=== PATIENT | female | born 1990 | race Caucasian/White ===

== ENCOUNTER → 2016-09-13 | Outpatient (CLI) | payer OTHER ==
[2016-02-08 20:49] VITALS: BP 130/85
[~2016-09-13] MED LIST: TRAM50TA PO
[2016-09-13 11:09] LABS: PREG TEST PT QUAL NEGATIVE (NEG)
== END | disposition home or self-care (01) ==
LOC: LAB 09:59
PROVIDERS: ATTEND Physician Assistant
DX: N91.2 Amenorrhea, unspecified (principal)
CPT/HCPCS: 84703

== ENCOUNTER 2016-10-02 12:02 | Emergency (ER) | payer OTHER ==
[2016-10-02] MEDS ORDERED: IV NORMAL SALINE 1,000ML 1,000 ML IV SCH (12:50)
[2016-10-02] MEDS ORDERED: GABAPENTIN 100 MG CAPSULE. PO ONE (13:00)
[2016-10-02] MEDS ORDERED: ORPHENADRINE CITRATE 60 MG/2 ML VIAL. IM ONE (13:00)
[2016-10-02] MEDS ORDERED: methylPREDNISolone SOD SUCC PF 125 MG/2 ML VIAL. IV ONE (13:00)
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
[2016-10-02 14:09] VITALS: BP 116/70
== END 2016-10-02 14:09 | disposition home or self-care (01) ==
LOC: ER 12:02
DX: M54.16 Radiculopathy, lumbar region (principal); G89.29 Other chronic pain; M62.830 Muscle spasm of back
CPT/HCPCS: 96361; 96372; 96374; 99284; J2360; J2930; J7030

== ENCOUNTER → 2019-11-29 | Outpatient (CLI) | payer OTHER ==
--- NOTE | 2019-11-29 15:39 | RAD ---
HAND RIGHT 2V History: Reason: / Spl. Instructions: / History: Pain Technique: 2 views right hand Comparison: None. Findings: Normal alignment. No fracture. Soft tissues unremarkable. Impression: 1. No acute osseous abnormality. Electronically signed by: Jose Suarez DO (11/29/2019 3:36 PM) [id number]
== END ==
LOC: RAD 14:07
PROVIDERS: ATTEND Family Medicine
DX: S69.91XA Unspecified injury of right wrist, hand and finger(s), initial encounter (principal); X58.XXXA Exposure to other specified factors, initial encounter; Y93.89 Activity, other specified; Y92.89 Other specified places as the place of occurrence of the external cause; Y99.8 Other external cause status
CPT/HCPCS: 73120

== ENCOUNTER 2021-05-14 08:08 | Emergency (ER) | payer OTHER ==
[~2021-05-14] VITALS: Ht 160 cm; Wt 82.5 kg
[2021-05-14] MEDS ORDERED: IBUPROFEN 600 MG TABLET. PO ONE (09:15)
--- NOTE | 2021-05-14 10:07 | RAD ---
Pelvis one view, sacrum and coccyx 3 views HISTORY: Fall with injury Pelvis Single view was taken of the pelvis. There is no acute pelvic fracture. Hips. Unremarkable. Sacrum and coccyx 3 views were taken of the sacrum and coccyx. Sacrum appears intact. Coccyx is in normal alignment. An acute fracture is not identified. There is spondylolysis at L5 with grade 1 spondylolisthesis. IMPRESSION: 1. No pelvic fracture noted. 2. No fracture noted in the sacrum or coccyx. 3. Spondylolysis at L5 with spondylolisthesis. Electronically signed by: Timothy Agustin MD (05/14/2021 10:05 AM) [facility]
[2021-05-14] MEDS ORDERED: IBUP600T16 PO (10:39)
[2021-05-14 10:50] VITALS: BP 118/67
--- NOTE | 2021-05-14 11:00 | PHYS DOC ---
Past History Past Medical History: Other Past Surgical History: No Surgical History Alcohol Use: None Drug Use: None Adult General Chief Complaint Chief Complaint: MECHANICAL FALL HPI HPI Patient is a [age] year old [sex] who presents with [] Review of Systems Review of Systems Constitutional: Denies fever or chills [] Eyes: Denies change in visual acuity, redness, or eye pain [] HENT: Denies nasal congestion or sore throat [] Respiratory: Denies cough or shortness of breath [] Cardiovascular: No additional information not addressed in HPI [] GI: Denies abdominal pain, nausea, vomiting, bloody stools or diarrhea [] : Denies dysuria or hematuria [] Musculoskeletal: Denies back pain or joint pain [] Integument: Denies rash or skin lesions [] Neurologic: Denies headache, focal weakness or sensory changes [] Endocrine: Denies polyuria or polydipsia [] All other systems were reviewed and found to be within normal limits, except as documented in this note. Current Medications Current Medications Current Medications Medications (Trade) Dose Ordered Sig/Rafael Start Time Stop Time Status Last Admin Dose Admin Ibuprofen (Motrin) 600 mg 1X ONCE 05/14/21 09:15 05/14/21 09:16 DC 05/14/21 09:47 600 MG Allergies Allergies Allergies Coded Allergies Type Severity Reaction Last Updated Verified No Known Allergies Allergy Unknown 02/08/16 Yes Physical Exam Physical Exam Constitutional: Well developed, well nourished, no acute distress, non-toxic appearance. [] HENT: Normocephalic, atraumatic, bilateral external ears normal, oropharynx moist, no oral exudates, nose normal. [] Eyes: PERRLA, EOMI, conjunctiva normal, no discharge. [] Neck: Normal range of motion, no tenderness, supple, no stridor. [] Cardiovascular:Heart rate regular rhythm, no murmur [] Lungs & Thorax: Bilateral breath sounds clear to auscultation [] Abdomen: Bowel sounds normal, soft, no tenderness, no masses, no pulsatile masses. [] Skin: Warm, dry, no erythema, no rash. [] Back: No tenderness, no CVA tenderness. [] Extremities: No tenderness, no cyanosis, no clubbing, ROM intact, no edema. [] Neurologic: Alert and oriented X 3, normal motor function, normal sensory function, no focal deficits noted. [] Psychologic: Affect normal, judgement normal, mood normal. [] Current Patient Data Vital Signs Vital Signs Date Time Temp Pulse Resp B/P (MAP) Pulse Ox O2 Delivery O2 Flow Rate FiO2 05/14/21 09:00 98.5 100 18 124/87 (99) 97 Lab Results Laboratory Tests Test 05/14/21 08:14 POC Urine HCG, Qualitative hcg negative (Negative) EKG EKG [] Radiology/Procedures Radiology/Procedures [] Heart Score Risk Factors: Risk Factors: DM, Current or recent (<one month) smoker, HTN, HLP, family history of CAD, obesity. Risk Scores: Risk Factors: DM, Current or recent (<one month) smoker, HTN, HLP, family history of CAD, obesity. Course & Med Decision Making Course & Med Decision Making Pertinent Labs and Imaging studies reviewed. (See chart for details) [] Dragon Disclaimer Dragon Disclaimer This electronic medical record was generated, in whole or in part, using a voice recognition dictation system. Departure Departure: Impression: Primary Impression: Contusion of multiple sites of buttock Disposition: 01 HOME / SELF CARE / HOMELESS Condition: GOOD Patient Instructions: Contusion Additional Instructions: Follow-up very closely with your primary care doctor in the office in the next 2 to 4 days for a reevaluation of your symptoms and a discussion of next best steps in care. Ice the area that hurts for 20 minutes at a time while you are not doing anything else. Take 600 mg of ibuprofen every 6 hours on a schedule for the next 3 days and then as needed after that, with food to prevent stomach upset. Return to the emergency department right away for worsening symptoms of any kind or with any other new symptoms of concern. Scripts Ibuprofen (IBUPROFEN) 600 Mg Tablet 600 MG PO QID PRN for PAIN, #40 TAB Prov: PETER BOWEN MD 05/14/21 Problem Qualifiers Primary Impression: Contusion of multiple sites of buttock Encounter type: initial encounter Qualified Codes: S30.0XXA - Contusion of lower back and pelvis, initial encounter PETER BOWEN MD May 14, 2021 10:41
== END 2021-05-14 10:50 | disposition home or self-care (01) ==
LOC: ER 08:08
DX: S30.0XXA Contusion of lower back and pelvis, initial encounter (principal); W10.8XXA Fall (on) (from) other stairs and steps, initial encounter; Y93.89 Activity, other specified; Y92.89 Other specified places as the place of occurrence of the external cause; Y99.8 Other external cause status
CPT/HCPCS: 72170; 72220; 81025; 99284